=== PATIENT | female | born 1965 | race Caucasian/White ===

== ENCOUNTER → 2017-03-09 | Outpatient (CLI) | payer BC ==
[~2017-03-09] MED LIST: ASPI-183 PO; ASPI81TA82 PO; ATEN-102 PO; ATEN50TA PO; HYDR-3533 PO; LEXA10TA PO; LISI10TA3 PO; LORA0.5T PO; MULT-65 PO; RANI150T PO; VITA150T PO
[2017-03-09 13:48] LABS: BACTERIA, URINE OCC /hpf; BLOOD, URINE NEG (NEG); COMMENT (UR) CULT NOT INDICATED; CULTURE IF INDICATED CULT NOT INDICATED; GLUCOSE,URINE NEG (NEG); KETONE, URINE NEG (NEG); MUCUS URINE FEW /lpf (OCC); NITRITE,URINE NEG (NEG); SQUAMOUS EPITHELIAL CELL URINE <1 /hpf (0-5); URINE COLOR YELLOW (YELLW/STRAW)
[2017-03-09 13:49] LABS: AUTOMATED NEUTROPHIL # 5.5 TH/MM3 (1.8-7.7); BASOPHIL % 0.4 % (0.0-2.0); EOSINOPHIL # 0.1 TH/MM3 (0-0.4); EOSINOPHIL % 1.9 % (0.0-4.0); HEMATOCRIT 39.2 % (35.0-46.0); HEMO FLAGS DIFF FINAL; LYMPH % 19.1 % (9.0-44.0); LYMPHOCYTE # 1.5 TH/MM3 (1.0-4.8); MEAN CORPUSCULAR HEMOGLOBIN 34.2 PG (27.0-34.0); MEAN CORPUSCULAR HGB CONC 33.5 % (32.0-36.0); MONO % 7.7 % (0.0-8.0); NEUT % 70.9 % (16.0-70.0); PLATELET COUNT 260 TH/MM3 (150-450); RED BLOOD COUNT 3.84 MIL/MM3 (4.00-5.30); RED CELL DISTRIBUTION WIDTH 13.2 % (11.6-17.2); WHITE BLOOD COUNT 7.8 TH/MM3 (4.0-11.0)
--- NOTE | 2017-03-09 14:01 | RADRPT ---
EXAM DATE/TIME: 03/09/2017 13:30 [place] COMPARISON: CHEST PA & LAT, October 31, 2014, 17:30. INDICATIONS : Evaluate for pneumonia, pneumothorax or communicable disease. Pre op D&C. MEDICAL HISTORY : hx. cardioversion SURGICAL HISTORY : None. ENCOUNTER: Initial ACUITY: 1 day PAIN SCORE: 0/10 LOCATION: Bilateral chest FINDINGS: PA and lateral views of the chest demonstrate a normal-sized cardiac silhouette. There is no effusion , consolidation, or pneumothorax. The bones and soft tissues demonstrate no acute abnormality. There are mild degenerative changes of the thoracic spine. CONCLUSION: No acute cardiopulmonary abnormality is identified. Severo Wilhelm MD on March 09, 2017 at 13:59 Board Certified Radiologist. This report was verified electronically.
[2017-03-09 14:07] LABS: BICARBONATE 28.7 MEQ/L (21.0-32.0); POTASSIUM 4.7 MEQ/L (3.5-5.1)
--- NOTE | 2017-03-10 14:10 | EKG ---
Date Performed: 03/09/2017 Time Performed: 12:52:12 PTAGE: 51 years EKG: Sinus bradycardia Lead II and Lead III are not interpretable due to marked baseline motion. Otherwise tracing within normal limits Since PREVIOUS TRACING , no significant change noted Recommend repeat tracing of better quality . Normal ECG except for rate PREVIOUS TRACIN10/31/2014 16.24 DOCTOR: Juvenal Mustafa Interpretating Date/Time 03/10/2017 14:10:19
== END ==
LOC: MERGE 12:30 → CPRE 12:33
PROVIDERS: ATTEND Obstetrics & Gynecology
DX: Z01.810 Encounter for preprocedural cardiovascular examination (principal); Z01.818 Encounter for other preprocedural examination; Z01.812 Encounter for preprocedural laboratory examination; N94.6 Dysmenorrhea, unspecified; R10.32 Left lower quadrant pain
CPT/HCPCS: 36415; 71020; 80048; 81001; 85025; 93005

== ENCOUNTER → 2017-03-14 | Day surgery (SDC) | payer BC ==
[~2017-03-14] VITALS: Ht 170.2 cm; Wt 94.5 kg
[~2017-03-14] MED LIST changes: +*morphine SULFATE 8 MG/ML PERIprocedure ONLY ONE; +ACETAMINOPHEN 1000 MG/100 ML 100 ML IV ONE; -ASPI81TA82 PO; -ATEN-102 PO; +CHLORHEXIDINE GLUCONATE 2 % 1 PACK (2 CLOTHS) TOPICAL PRN; +DEXAMETHASONE SOD PHOS 4 MG/ML VIAL IV ONE; +DO NOT ADM ANY ANTICOAGULANT DRUGS PRN; +GLYCOPYRROLATE 1 MG/5 ML SYRINGE IV PUSH ONE; -HYDR-3533 PO; +INSULIN HUMAN REGULAR 1,000 UNITS/10 ML VIAL SQ PRN; +KETOROLAC TROMETHAMINE 30 MG/ML (IVP) VIAL IV PUSH ONE; +LACTATED RINGER'S 1000 ML IV PRN; +LIDOCAINE HCL 1% PF 5 ML SYRINGE OTHER ONE; +METOPROLOL TARTRATE 25 MG TAB PO PRN; +MIDAZOLAM HCL 2 MG/2 ML VIAL IV ONE; +MORPHINE SULFATE 4 MG/ML INJ IV ONE; +NEOSTIGMINE 5 MG/5 ML SYRINGE IV PUSH ONE; +ONDANSETRON HCL 4 MG/2 ML VIAL IV ONE; +ONDANSETRON HCL 4 MG/2 ML VIAL ONE; +POVIDONE IODINE 5% (ANTISEPSIS KIT) 4 APPLICATIONS EACH NARE PRN; +PROPOFOL 200 MG/20 ML AMP IV ONE; +ROCURONIUM INJ 50 MG/5 ML SYRINGE IV PUSH ONE; +SODIUM CHLORID 0.9% 500 ML IV PRN; +ceFAZolin INJ 1,000 MG VIAL IV ONE
--- NOTE | 2017-03-14 14:14 | PD.OP ---
Operative Report Date of Surgery: Mar 14, 2017 Preoperative Diagnosis: Chronic left lower quadrant pain Severe dysmenorrhea Postoperative Diagnosis: Same plus abdominopelvic adhesions Procedure: Examination under anesthesia Dilation and curettage of the uterus Hysteroscopic exam Laparoscopic exam with a lysis of adhesions in the left lower quadrant, left salpingo-oophorectomy, right salpingectomy Anesthesia: Gen. endotracheal intubation Surgeon: Juvenal Butt M.D. Operation and Findings: Findings... Examination under anesthesia revealed a clean vagina and cervix the uterus was normal size shape and consistency and freely mobile the adnexa was negative for masses. The D&C and hysteroscopic exam revealed a normal uterine cavity and any polyps or submucous myomas. The visualization was suboptimal however. The D&C revealed a minimal amount of tissue. The laparoscopic exam revealed thick adhesions in the left lower quadrant over exactly where she had the pain the left ovary also had some adhesive disease which was taken down. The fallopian tube were both normal in length and caliber the right ovary was perfectly normal the uterus was normal the cul-de-sacs were normal. The upper abdomen was normal. Procedure in detail... Patient was taken the operating room and identified by name band and verbally given a general anesthetic and carefully placed in dorsal lithotomy position and prepped and draped in the usual sterile fashion. Examination under anesthesia was carried out with the above findings and a Wilhelm catheter was inserted. Weighted speculum was placed in the vagina the anterior lip of the cervix was grasped with a single-tooth tenaculum the cervix was serially dilated without any difficulty. The hysteroscope was inserted and the emanation was suboptimal but I did not see any polyps or submucous myomas. A 1 sharp curet was then placed into the uterus and curettage of the entire endometrium was carried out and sent for pathologic evaluation. Hulka clamp was placed for uterine manipulation. Attention was turned to the umbilical area where a small local incision was made and with the 5 mm trocar the abdomen was entered under direct vision without difficulty and a pneumoperitoneum was created. Inferior lateral to this was a large amount of omental adhesions but the right side was clear a second puncture with a 5 mm trocar was placed in the right lower quadrant. Using these 2 ports those adhesions were taken down completely with excellent results. In the left lower quadrant a 10 mm trocar was then placed under direct vision there was some adhesive disease around the infundibulopelvic ligament and these adhesions were taken down. Using the Harmonic scalpel the infundibulopelvic ligament was taken with excellent hemostasis the mesial salpinx was then operated from the fallopian tube to the level of the uterine fundus and Endo Catch bag was used to remove the specimen. Attention was turned to the right fallopian tube and using the Harmonic scalpel that tube was taken along the meso salpinx. This was removed and sent for pathologic evaluation as well. A large amount of irrigation was used and all the surgical sites were carefully inspected and were all hemostatic. The remainder trocar was removed from the left lower quadrant and the fascia was repaired with a 2-0 Vicryl in an interrupted fashion. Airway was released through the second puncture the laparoscope was removed under direct vision without difficulty the skin was repaired with a 4-0 Vicryl cuticular manner with excellent results she tolerated the procedure well went to recovery room in good condition Camelia Butt MD Mar 14, 2017 14:14
--- NOTE | 2017-03-14 14:49 | EKG ---
Date Performed: 03/14/2017 Time Performed: 09:49:49 PTAGE: 51 years EKG: SINUS BRADYCARDIA BORDERLINE ECG PREVIOUS TRACING : 03/09/2017 12.52 DOCTOR: Efrain Devlin Interpretating Date/Time 03/14/2017 14:49:17
[2017-03-14 16:34] VITALS: BP 110/69; PULSE 52; RESP 16; TEMP 97.7; O2SAT 94
== END | disposition home or self-care (01) ==
LOC: MERGE 08:00 → HSDC 08:26
PROVIDERS: ATTEND Obstetrics & Gynecology
DX: N83.02 Follicular cyst of left ovary (principal); N94.6 Dysmenorrhea, unspecified; N83.8 Other noninflammatory disorders of ovary, fallopian tube and broad ligament; K66.0 Peritoneal adhesions (postprocedural) (postinfection); R94.31 Abnormal electrocardiogram [ECG] [EKG]; I10 Essential (primary) hypertension
CPT/HCPCS: 00840; 58558; 58661; 88305; 93005; C1765; J0131; J0690; J1100; J1885; J2250; J2270; J2405; J2710; J3010